=== PATIENT | female | born 1950 | race Caucasian/White ===

== ENCOUNTER 2019-02-18 00:45 | Inpatient (IN) | payer MEDICARE, MEDICAID ==
[2019-02-18 02:57] VITALS: BP 143/78
[2019-02-18] MEDS: Vitamin D3 2,000 IU SGL PO SCH (08:53)
[2019-02-18] MEDS: Fish Oil 1,000 MG SGL PO SCH ×2 (08:53→17:40)
[2019-02-18] MEDS: Multivitamin w/ Minerals Tab PO SCH (08:54)
[2019-02-18] MEDS: Pantoprazole 40 mg EC Tab PO SCH (08:56)
[2019-02-18] MEDS ORDERED: FISH OIL PO SCH (09:00)
[2019-02-18] MEDS ORDERED: [UNRECOGNIZED DRUG - OTHER] PO SCH (09:00)
[2019-02-18] MEDS ORDERED: CARBOXYMETHYLCELLULOSE SODIUM EACH EYE SCH (09:00)
[2019-02-18] MEDS ORDERED: Non-Formulary Item 1 EA (Cholecalciferol (Vitamin D3) [Vitamin D3] 1 CAP) PO SCH (09:00)
[2019-02-18] MEDS ORDERED: FLUTICASONE IH SCH (09:00)
[2019-02-18] MEDS ORDERED: BIOTIN 300 MCG PO SCH (09:00)
[2019-02-18] MEDS ORDERED: LAMOTRIGINE 75 MG PO SCH (09:00)
[2019-02-18] MEDS ORDERED: Hydrocodone/APAP 10 mg/325 mg Tab PO SCH (09:00)
[2019-02-18] MEDS ORDERED: OMEGA PO SCH (09:00)
[2019-02-18] MEDS ORDERED: SALMETEROL IH SCH (09:00)
[2019-02-18] MEDS ORDERED: FATTY ACIDS PO SCH (09:00)
[2019-02-18] MEDS ORDERED: Albuterol Nebulizer 2.5mg/3mL HHN SCH (13:00)
[2019-02-18] MEDS: Polyvinyl Alcohol Ophth Soln 15 mL Bottle EACH EYE PRN (13:03)
[2019-02-18] MEDS: Hydrocodone/APAP 10 mg/325 mg Tab PO PRN (13:03)
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
--- NOTE | 2019-02-18 15:09 | History & Physical ---
ADMIT DATE: 02/18/2019 PATIENT IDENTIFICATION: A 68-year-old female. CHIEF COMPLAINT: "I want to have more Klonopin." HISTORY SOURCE: Reviewing the chart, talking to the staff at [facility] as well as [facility] staff as well as the patient is known to me from [facility] since being I am the primary care doctor. HISTORY OF PRESENT ILLNESS: A 68-year-old female sees us at [facility], has history of diabetes, restless leg syndrome, osteoarthritis, osteoporosis, psychotic disorder, started to have symptoms of increasing anxiety, asking for more Klonopin and getting paranoid and agitated. The patient was sent to the hospital at [facility] where the patient was seen by Emergency Room MD. The patient was medically cleared and now being transferred to [facility] for further care. PAST MEDICAL HISTORY: Remarkable for: 1. Diabetes. 2. Dysphagia. 3. Degenerative joint disease. 4. Psychotic disorder. 5. History of chronic obstructive pulmonary disease. 6. Restless leg syndrome. 7. Gastroesophageal reflux disease. 8. Hyperlipidemia. 9. Chronic pain syndrome. MEDICATIONS: At the time of transfer, the patient is taking Klonopin, Lamictal, multivitamin, vitamin D3, Requip, omeprazole, Biotin, baclofen, Ingrezza, magnesium oxide, Advair, propranolol, Neurontin, Gurley, Colace. ALLERGIES: The patient is not allergic to any medications. SOCIAL HISTORY: The patient is a resident of [facility]. No history of smoking cigarette, alcohol, or drug use. FAMILY MEDICAL HISTORY: Remarkable for hypertension. REVIEW OF SYSTEMS: The patient is complaining of being more anxious, asking for more Klonopin and more Gurley. The patient denies any chest pain, shortness of breath, palpitation, dizziness, nausea, vomiting, diarrhea, dysuria, hematuria, hematochezia or melena. No history of any seizure or syncopal episode. No weight loss, no significant weight gain. No history of vaginal bleeding. No history of any hematuria, hematochezia or melena. PHYSICAL EXAMINATION: GENERAL: The patient is alert, awake, oriented, lying in the bed without any acute distress. VITAL SIGNS: Temperature 98.6, pulse is 74, respiratory rate 18, blood pressure is 143/67. HEENT: Normocephalic, atraumatic. Extraocular muscles are intact. Tongue is pink and coated. Poor dentition noted. No oral lesions, no exudate. No sinus tenderness. External auditory canal/membranes are well visualized. NECK: Supple, no JVD, no hepatojugular reflex. No lymphadenopathy, thyromegaly or carotid bruit. HEART: Both heart sounds are regular. No S3, no S4, no murmur. CHEST AND LUNGS: Equal in expansion, no expiratory wheezing. ABDOMEN: Soft. No guarding, no rigidity. Bowel sounds present. No palpable mass. EXTREMITIES: No edema, no cyanosis. Peripheral pulses are +1. No calf tenderness noted. NEUROLOGIC: Alert, awake, follows command. 2-12 cranial nerves are intact. Power in upper and lower extremities are 5-. Sensation to touch intact. Babinski's in both toes are going down. No cerebral sign. AVAILABLE DIAGNOSTIC DATA: CBC, chemistry panel and urine drug screen have been ordered at [facility], but I do not have any access to review the records. CLINICAL IMPRESSION: 1. Psychiatric disorder exacerbation. 2. Asthma, chronic obstructive pulmonary disease. 3. Diabetes mellitus. 4. Degenerative joint disease. 5. Osteoporosis. 6. Restless leg syndrome. 7. Chronic pain syndrome. 8. Gastroesophageal reflux disease. 9. Debility. 10. Chronic pain syndrome. 11. Fall risk. PLAN: 1. Psychiatric evaluation and management deferred to psychiatrist. 2. Resume the patient's medication as the patient was receiving at a [facility]. 3. Fall precautions. 4. Nutritional support. 5. General nursing care. 6. Appropriate home medication reconciliation. 7. Chronic disease management. 8. Symptoms management. 9. Care plan reviewed and discussed with staff. JOB# [id number]
[2019-02-18] MEDS ORDERED: Budesonide 0.5 Mg/2 mL Ud HHN SCH (19:00)
[2019-02-18] MEDS ORDERED: Budesonide 0.5 Mg/2 mL Ud HHN PRN (19:42)
[2019-02-18] MEDS ORDERED: Albuterol Nebulizer 2.5mg/3mL HHN PRN (19:45)
[2019-02-19] MEDS: Hydrocodone/APAP 10 mg/325 mg Tab PO PRN ×3 (07:11→23:11)
[2019-02-19] MEDS: Polyvinyl Alcohol Ophth Soln 15 mL Bottle EACH EYE PRN ×3 (08:35→21:10)
[2019-02-19] MEDS: Pantoprazole 40 mg EC Tab PO SCH (08:36)
[2019-02-19] MEDS: Multivitamin w/ Minerals Tab PO SCH (08:37)
[2019-02-19] MEDS: Vitamin D3 2,000 IU SGL PO SCH (09:00)
[2019-02-19] MEDS: Fish Oil 1,000 MG SGL PO SCH ×2 (09:00→16:23)
--- NOTE | 2019-02-19 16:15 | Progress Notes ---
DATE: 02/19/2019 Case was discussed with staff of the patient, reviewed records. The patient continues to complain of feeling very restless. Continues to be depressed, overwhelmed with a history of bipolar disorder. She denies with a history of encephalopathy. She is in denial about any prior treatment; however, she is on many psychotropic medication that does not make sense with a history of being diagnosed with schizophrenia and bipolar disorder. Sleeping better, eating better. No side effects with the medication, no sedation, or no nausea. She was started back on her medications. She is on Requip for her restless legs syndrome. She complains of still restless, we will give more medication time to work. We will continue outpatient group therapy, milieu therapy, and adjust medication as needed. JOB# [id number]
[2019-02-20] MEDS: Vitamin D3 2,000 IU SGL PO SCH (08:56)
[2019-02-20] MEDS: Fish Oil 1,000 MG SGL PO SCH ×2 (08:57→17:37)
[2019-02-20] MEDS: Multivitamin w/ Minerals Tab PO SCH (08:58)
[2019-02-20] MEDS: Pantoprazole 40 mg EC Tab PO SCH (08:58)
[2019-02-20] MEDS: Polyvinyl Alcohol Ophth Soln 15 mL Bottle EACH EYE PRN ×2 (09:00→20:46)
--- NOTE | 2019-02-20 10:24 | Progress Notes ---
DATE: 02/20/2019 PATIENT'S IDENTIFICATION: A 68-year-old female. SUBJECTIVE: The patient seen and examined. The patient is lying in the bed. The patient currently denies any chest pain, shortness of breath, palpitation, dizziness, nausea or vomiting. PHYSICAL EXAMINATION: VITAL SIGNS: See nurse's note. HEENT: Poor dentition. NECK: Supple, no JVD. HEART: Regular. CHEST: Lung equal in expansion, no expiratory wheezing. ABDOMEN: Soft. Bowel sounds present. No palpable mass. EXTREMITIES: No edema. CLINICAL IMPRESSION: 1. Psychotic disorder exacerbation. 2. Asthma, chronic obstructive pulmonary disease. 3. Diabetes. 4. Osteoporosis. 5. Restless leg syndrome. 6. Degenerative joint disease. 7. Gastroesophageal reflux disease. PLAN: 1. Psych medication. 2. Psych followup. 3. Asthma management. 4. Monitor blood sugar. 5. Requip. 6. Pain management. 7. Proton pump inhibitor. 8. General nursing care. 9. We will continue to follow this patient during the stay in the hospital. JOB# [id number]
--- NOTE | 2019-02-20 21:23 | Progress Notes ---
DATE: SUBJECTIVE: Chart reviewed and the patient interviewed. Also discussed the patient's condition with the staff and reviewed records and labs. The patient is in angry and irritable mood and the patient has mood swings. Also, during my interview, the patient is loud and keeps repeating questions and she is also suspicious. The patient also is still intrusive to others and hyperverbal and speech is pressured. The patient also is suspicious and is easily agitated and seems to be paranoid. Otherwise, the patient is compliant with taking her medications with no side effects of medications. ASSESSMENT: The patient is still having mood swings and showing manic behavior. TREATMENT PLAN: Continue to monitor behavior and condition closely. Also, we will increase Lamictal to 100 mg twice a day and continue gabapentin 300 mg 4 times a day. Also, continue to work on behavioral modification and her irritable mood. JOB# [id number]
[2019-02-20] MEDS: Hydrocodone/APAP 10 mg/325 mg Tab PO PRN (22:23)
[2019-02-21] MEDS: Multivitamin w/ Minerals Tab PO SCH (08:48)
[2019-02-21] MEDS: Fish Oil 1,000 MG SGL PO SCH ×2 (08:49→16:46)
[2019-02-21] MEDS: Vitamin D3 2,000 IU SGL PO SCH (08:49)
[2019-02-21] MEDS: Pantoprazole 40 mg EC Tab PO SCH (08:50)
--- NOTE | 2019-02-21 09:26 | Progress Notes ---
DATE: PATIENT'S IDENTIFICATION: A 68-year-old female. SUBJECTIVE: The patient was seen and examined. The patient was sitting in the chair. Denies any chest pain, shortness of breath, palpitation, dizziness, nausea or vomiting. OBJECTIVE: VITAL SIGNS: Temperature 97.8, pulse 61, respiratory rate 18, blood pressure 130/63. HEENT: No facial asymmetry. Poor dentition noted. NECK: Supple, no JVD. HEART: Regular. CHEST: Lungs are equal in expansion, no expiratory wheezing. ABDOMEN: Soft. Bowel sounds present. No palpable masses. EXTREMITIES: No edema. CLINICAL IMPRESSION: 1. Psychotic disorder exacerbation. 2. Restless legs syndrome. 3. Degenerative joint disease. 4. Dysphagia. 5. Chronic obstructive pulmonary disease. 6. Gastroesophageal reflux disease. 7. Hyperlipidemia. 8. Chronic pain syndrome. 9. Diabetes mellitus. PLAN: 1. Psych medication. 2. Psych followup. 3. P.r.n. inhalation therapy. 4. Maintenance steroid therapy for COPD. 5. General nursing care. 6. Requip. 7. Pain management. 8. Follow lab. 9. Fall precautions. 10. Nutritional support. 11. Care plan reviewed and discussed with staff. JOB# [id number]
[2019-02-21] MEDS: Hydrocodone/APAP 10 mg/325 mg Tab PO PRN ×2 (10:08→23:42)
--- NOTE | 2019-02-21 19:19 | Progress Notes ---
DATE: 02/21/2019 SUBJECTIVE: Chart was reviewed and the patient interviewed. Also discussed the patient's condition with the staff and reviewed records and labs. The patient is still anxious and the patient is still in an irritable and angry mood. The patient also is forgetful and she is still easily agitated and is hyperverbal and loud. She also still has mood swings and intrusive to others. The patient also is focused on pain medications and the patient is asking for more of pain medications. Otherwise, the patient is compliant with taking her medications with no side effects of medications. ASSESSMENT: The patient is still exhibiting manic behavior and is hyperverbal and agitated. TREATMENT PLAN: We will continue monitoring her behavior and her condition closely. Also, continue to work on her irritability and anger. Also, continue adjusting psychotropic medications and follow up closely. JOB# [id number]
[2019-02-22] MEDS: Hydrocodone/APAP 10 mg/325 mg Tab PO PRN ×3 (06:56→21:07)
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
[2019-02-22] MEDS: Vitamin D3 2,000 IU SGL PO SCH (08:52)
[2019-02-22] MEDS: Fish Oil 1,000 MG SGL PO SCH ×2 (08:52→17:05)
[2019-02-22] MEDS: Multivitamin w/ Minerals Tab PO SCH (08:52)
[2019-02-22] MEDS: Pantoprazole 40 mg EC Tab PO SCH (08:53)
--- NOTE | 2019-02-22 19:10 | Progress Notes ---
DATE: 02/22/2019 SUBJECTIVE: The patient seen and examined. The patient is sitting in a chair. The patient currently denies any chest pain, shortness of breath, palpitation, dizziness, nausea, vomiting, diarrhea. PHYSICAL EXAMINATION: VITAL SIGNS: Temperature 97.2, pulse 55, respiratory rate 18, blood pressure 110/70. Medication admission record has been reviewed. HEENT: No facial asymmetry. NECK: Supple, no JVD. HEART: Regular. CHEST: Lung equal in expansion, no expiratory wheezing. ABDOMEN: Soft. Bowel sounds present. No palpable mass. EXTREMITIES: No edema. CLINICAL IMPRESSION: 1. Allergic rhinitis. 2. Vitamin D deficiency. 3. Urinary incontinence. 4. Restless leg syndrome. 5. Psychotic disorder. 6. Degenerative joint disease. 7. Peripheral neuropathy. 8. Chronic constipation. 9. Asthma, chronic obstructive pulmonary disease. 10. Chronic pain. PLAN: 1. Continue pain management. 2. Inhalation therapy. 3. Pain. Baclofen. 4. Continue other medicine as prescribed. 5. Fall precaution. 6. General nursing care. 7. Chronic disease management. 8. Symptoms management. 9. Medication management. 10. Care plan reviewed and discussed with staff. JOB# [id number]
[2019-02-23] MEDS: Vitamin D3 2,000 IU SGL PO SCH (08:22)
[2019-02-23] MEDS: Fish Oil 1,000 MG SGL PO SCH ×3 (08:22→18:48)
[2019-02-23] MEDS: Multivitamin w/ Minerals Tab PO SCH (08:23)
[2019-02-23] MEDS: Pantoprazole 40 mg EC Tab PO SCH (08:24)
--- NOTE | 2019-02-23 15:20 | Progress Notes ---
DATE: SUBJECTIVE: Chart was reviewed and the patient interviewed. Also discussed the patient's condition with the staff and reviewed records and labs. The patient is still easily agitated and she is still in irritable and angry mood. The patient also is hyperverbal and she is pacing around the unit in an irritable mood and intrusive to others. The patient also is still in suspicious and is still paranoid. The patient also had difficulty sleeping at night. The patient continued to also ask for more pain medications and she is occupied with pain medications. Also, has difficulty following the directions. Otherwise, the patient is compliant with taking her medications with no side effects of medications. ASSESSMENT: The patient is still agitated and in irritable mood. TREATMENT PLAN: We will increase Seroquel to 50 mg 3 times a day. Also, we will increase gabapentin to 400 mg 4 times a day. Also, continue to work on her irritability and her mood and continue to follow up. JOB# [id number]
--- NOTE | 2019-02-23 15:56 | Progress Notes ---
DATE: 02/23/2019 SUBJECTIVE: The patient seen and examined. The patient is sitting in a chair. Denies any new complaint. Medication administration record has been reviewed. OBJECTIVE: VITAL SIGNS: Temperature 97.8, pulse 68, respiratory rate 18, blood pressure 131/64. HEENT: Poor dentition. NECK: Supple, no JVD. HEART: Regular. CHEST AND LUNGS: Equal in expansion, no expiratory wheezing. ABDOMEN: Soft. Bowel sounds are present. No palpable mass. EXTREMITIES: No edema. Peripheral pulses +1. No calf tenderness. CLINICAL IMPRESSION: 1. Psychiatric disorder exacerbation. 2. Asthma and chronic obstructive pulmonary disease. 3. Degenerative joint disease. 4. Osteoporosis. 5. Restless leg syndrome. 6. Chronic pain syndrome. 7. Gastroesophageal reflux disease. 8. Debility. 9. Fall risk. PLAN: 1. Psych medication. 2. P.r.n. inhalation therapy. 3. Maintenance steroid inhaler. 4. Fall precautions. 5. Requip. 6. Protonix. 7. Antireflux measures. 8. General nursing care. 9. Nutritional support. 10. Fall precaution. 11. Care plan reviewed and discussed with staff. JOB# [id number]
[2019-02-24] MEDS: Polyvinyl Alcohol Ophth Soln 15 mL Bottle EACH EYE PRN (08:34)
[2019-02-24] MEDS: Pantoprazole 40 mg EC Tab PO SCH (08:35)
[2019-02-24] MEDS: Vitamin D3 2,000 IU SGL PO SCH (08:40)
[2019-02-24] MEDS: Fish Oil 1,000 MG SGL PO SCH ×2 (08:40→16:35)
[2019-02-24] MEDS: Multivitamin w/ Minerals Tab PO SCH (08:41)
--- NOTE | 2019-02-24 20:06 | Progress Notes ---
DATE: 02/24/2019 SUBJECTIVE: The patient seen and examined. The patient is lying in the bed. The patient complained of being constipated. The patient is currently on stool softener. PHYSICAL EXAMINATION: VITAL SIGNS: Temperature 97.4, pulse 65, respiratory rate 20, blood pressure 152/72. HEENT: Poor dentition. NECK: Supple, no JVD. HEART: Regular. CHEST: Lung equal in expansion, no expiratory wheezing. ABDOMEN: Soft. Bowel sounds present. No palpable mass. EXTREMITIES: No edema. NEUROLOGIC: Decreased power throughout the upper and lower extremity. CLINICAL IMPRESSION: 1. Restless leg syndrome. 2. Functional constipation. 3. Gastroesophageal reflux disease. 4. Diabetes. 5. High risk for fall. 6. Psychotic disorder. 7. Vitamin D deficiency. 8. Asthma. 9. Chronic pain syndrome. PLAN: 1. Constipation, stool softener along with anti-constipation medication. 2. Pulmicort for asthma. 3. P.r.n. inhalation therapy. 4. Requip. 5. Symptoms management. 6. Singulair. 7. Protonix. 8. General nursing care. 9. Psych medication. 10. Psych followup. 11. Care plan reviewed and discussed with staff. JOB# [id number]
[2019-02-24] MEDS: Lactulose 10 Gm/15 mL 30mL UDC PO PRN (21:32)
--- NOTE | 2019-02-25 01:53 | Progress Notes ---
DATE: 02/24/2019 Case was discussed with staff of the patient, reviewed records. This is a well-known case to me and seen her before many times and covering for Dr. Malik. The patient continues to be angry, irritable, easily agitated, hyperverbal, pacing around the unit. Continues to have poor insight. Continues to have difficulty with sleep. She has been seeking pain medication. Unable to follow directions. She has been compliant with the medication with no side effects, no sedation, no nausea, no extrapyramidal symptoms. We will continue to work with the patient in group therapy, milieu therapy, adjust medication as needed. JOB# [id number]
[2019-02-25] MEDS: Hydrocodone/APAP 10 mg/325 mg Tab PO PRN (02:58)
[2019-02-25] MEDS: Vitamin D3 2,000 IU SGL PO SCH (08:42)
[2019-02-25] MEDS: Pantoprazole 40 mg EC Tab PO SCH (08:42)
[2019-02-25] MEDS: Fish Oil 1,000 MG SGL PO SCH ×2 (08:42→16:29)
[2019-02-25] MEDS: Multivitamin w/ Minerals Tab PO SCH (08:43)
--- NOTE | 2019-02-26 00:27 | Progress Notes ---
DATE: 02/25/2019 SUBJECTIVE: The patient was seen and evaluated. The patient's chart reviewed. Covering for Dr. Malik. IDENTIFYING DATA: A 68-year-old female brought in here after the patient ____ from [facility] with a history of schizoaffective bipolar type, presented disorganized. Physician evaluation observed her to be irritable, easily agitated, hyperverbal and pacing around the unit. Today on [id number] evaluation, the patient reports that her medications are tolerated. She denies any complications, oversedation with the medication. She does report her anxiety with depressive symptoms continue to improve, although finds herself stressed and ____. MENTAL STATUS EXAMINATION: Mild anxiety, depressed. ASSESSMENT AND PLAN: The patient is with history of schizoaffective, bipolar type, stabilizing with the current medication regimen, which includes, as per medication reconciliation reviewed, includes Klonopin as needed, gabapentin, Lamictal, Seroquel. [facility]# [id number]
[2019-02-26] MEDS: Hydrocodone/APAP 10 mg/325 mg Tab PO PRN (06:31)
[2019-02-26] MEDS: Polyvinyl Alcohol Ophth Soln 15 mL Bottle EACH EYE PRN ×2 (06:32→20:59)
[2019-02-26] MEDS: Fish Oil 1,000 MG SGL PO SCH ×2 (08:31→16:36)
[2019-02-26] MEDS: Vitamin D3 2,000 IU SGL PO SCH (08:31)
[2019-02-26] MEDS: Pantoprazole 40 mg EC Tab PO SCH (08:31)
[2019-02-26] MEDS: Multivitamin w/ Minerals Tab PO SCH (08:32)
--- NOTE | 2019-02-26 16:29 | Progress Notes ---
DATE: 02/26/2019 Nursing staff observed to be more redirectable. Today on [id number] evaluation, the patient denies any complications of medication. The patient reported her anxiety and depressive symptoms are less intense. MENTAL STATUS EXAMINATION: Less depressed and less anxious. ASSESSMENT AND PLAN: Schizoaffective disorder stabilized with the current medication regimen. We will continue monitoring and evaluating as she continues to develop coping skills with both individual, group therapy. Primary medical doctor to continue working with mental briefcase sewer for safe disposition once psychiatrically stable. JOB# [id number]
[2019-02-26] MEDS: Lactulose 10 Gm/15 mL 30mL UDC PO PRN (20:45)
[2019-02-27] MEDS: Pantoprazole 40 mg EC Tab PO SCH (08:51)
[2019-02-27] MEDS: Fish Oil 1,000 MG SGL PO SCH ×2 (08:52→16:49)
[2019-02-27] MEDS: Multivitamin w/ Minerals Tab PO SCH (08:53)
[2019-02-27] MEDS: Vitamin D3 2,000 IU SGL PO SCH (08:54)
[2019-02-27] MEDS: Hydrocodone/APAP 10 mg/325 mg Tab PO PRN ×3 (09:07→21:27)
--- NOTE | 2019-02-27 20:04 | Progress Notes ---
DATE: 02/27/2019 SUBJECTIVE: The patient seen and examined. The patient was lying in the bed. According to nurse, the patient had some diarrhea. The patient currently denies any chest pain, shortness of breath, palpitation, dizziness, nausea, vomiting, hematemesis, hematochezia, or melena. PHYSICAL EXAMINATION: VITAL SIGNS: Temperature 97.4, pulse 60, respiratory rate 18, blood pressure 133/60. HEENT: Poor dentition. NECK: Supple, no JVD. HEART: Regular. LUNGS: Clear. ABDOMEN: Soft. Bowel sounds present. No palpable mass. EXTREMITIES: No edema. Peripheral pulses +1. NEUROLOGIC: Lower extremity weakness noted. CLINICAL IMPRESSION: 1. Diarrhea, etiology needs to be determined. 2. Asthma. 3. Chronic pain. 4. Vitamin D deficiency. 5. Hypertension. 6. Diabetes. 7. Degenerative joint disease. 8. Gastroesophageal reflux disease. 9. Essential tremor. 10. Restless leg syndrome. PLAN: 1. P.r.n. Imodium. 2. Stool studies. 3. Continue other medicine as prescribed. 4. Psych followup. 5. Psych medication. 6. Fall precaution. 7. General nursing care. 8. Continue other medicine as prescribed. 9. Care plan reviewed and discussed with staff. JOB# [id number]
--- NOTE | 2019-02-28 00:01 | Progress Notes ---
DATE: 02/27/2019 Case was discussed with staff of the patient, reviewed records. The patient continues to be depressed, irritable. Continues to have poor insight. Continues to be unpredictable, impulsive. She reports her symptoms were starting to improve. No side effects with the medication, no sedation, no nausea, no extrapyramidal symptoms. Her vital signs are stable. We will continue outpatient group therapy, milieu therapy, and adjust medications as needed. [facility]# [id number]
[2019-02-28] MEDS: Hydrocodone/APAP 10 mg/325 mg Tab PO PRN ×2 (06:38→13:21)
[2019-02-28] MEDS: Pantoprazole 40 mg EC Tab PO SCH (08:29)
[2019-02-28] MEDS: Multivitamin w/ Minerals Tab PO SCH (08:29)
[2019-02-28] MEDS: Vitamin D3 2,000 IU SGL PO SCH (08:29)
[2019-02-28] MEDS: Fish Oil 1,000 MG SGL PO SCH ×2 (08:29→16:29)
--- NOTE | 2019-02-28 21:28 | Progress Notes ---
DATE: Case was discussed with staff of the patient, reviewed records. The patient is preoccupied with discharge. Continues to have poor insight. Continues to have episodes of irritability. She is impulsive, unpredictable, depressed; however, she also reports her symptoms started to improve. She is sleeping well, eating well, able to express herself well. No side effects with the medication, no sedation, no nausea and no extrapyramidal symptoms. Discussed side effects of medication including Lamictal and the possibility of ____ rashes, continue on medication and go to a doctor and if possible, we will continue outpatient group therapy, milieu therapy, and adjust the medication as needed. JOB# [id number]
--- NOTE | 2019-03-01 07:04 | Progress Notes ---
DATE: PSYCHIATRIC PROGRESS NOTE SUBJECTIVE: Chart was reviewed and the patient interviewed. Also discussed the patient's condition with the staff and reviewed records and labs. The patient is still extremely irritable and is still extremely agitated. The patient also is still demanding and still having severe mood swings. The patient also is intrusive. She also is asking to go back to [place] while at the same time, they are not accepting her because of her behavior unless if she has a change in her behavior. She is still bothering other patients and is interfering with their business and argumentative with them and towards the staff. Otherwise, the patient is compliant with taking her medications with no side effects of medications. ASSESSMENT: The patient is still intrusive and is still agitated and can be dangerous to others with her agitation and aggressive behavior. TREATMENT PLAN: Continue to monitor her behavior and condition closely. Also, continue Neurontin and Lamictal, but will increase Seroquel to 100 mg 3 times a day and continue to work on behavior modification as well as discharge plans. JOB# [id number]
[2019-03-01] MEDS: Vitamin D3 2,000 IU SGL PO SCH (08:12)
[2019-03-01] MEDS: Multivitamin w/ Minerals Tab PO SCH (08:14)
[2019-03-01] MEDS: Pantoprazole 40 mg EC Tab PO SCH (08:14)
[2019-03-01] MEDS: Fish Oil 1,000 MG SGL PO SCH ×2 (08:15→17:09)
[2019-03-01] MEDS: Polyvinyl Alcohol Ophth Soln 15 mL Bottle EACH EYE PRN (09:50)
[2019-03-01] MEDS: Hydrocodone/APAP 10 mg/325 mg Tab PO PRN (10:02)
--- NOTE | 2019-03-01 23:00 | Progress Notes ---
DATE: 03/01/2019 SUBJECTIVE: The patient seen and examined. The patient is lying in the bed. The patient denies any chest pain, shortness of breath, palpitation, dizziness, nausea, vomiting, diarrhea. PHYSICAL EXAMINATION: VITAL SIGNS: See nurse's note. HEENT: Poor dentition. NECK: Supple, no JVD. HEART: Regular. CHEST AND LUNGS: Equal in expansion, no expiratory wheezing. ABDOMEN: Soft, no guarding, no rigidity. Bowel sounds present. No palpable mass. EXTREMITIES: No edema, no cyanosis. Peripheral pulses are +2. No calf tenderness noted. MEDICATIONS: Available MAR reviewed. CLINICAL IMPRESSION: 1. Gastroesophageal reflux disease. 2. Constipation. 3. Diabetes. 4. Vitamin D deficiency. 5. Asthma. 6. Chronic pain syndrome. 7. Degenerative joint disease. 8. Fall risk. PLAN: 1. Requip. 2. Protonix. 3. Antireflux measures. 4. Monitor blood sugar. 5. Vitamin D supplement. 6. Psych medication. 7. Pain management. 8. P.r.n. inhalation therapy. 9. General nursing care. 10. Care plan reviewed and discussed with staff. JOB# [id number]
[2019-03-02] MEDS: Hydrocodone/APAP 10 mg/325 mg Tab PO PRN ×2 (03:39→11:43)
[2019-03-02] MEDS: Multivitamin w/ Minerals Tab PO SCH (09:01)
[2019-03-02] MEDS: Pantoprazole 40 mg EC Tab PO SCH (09:01)
[2019-03-02] MEDS: Vitamin D3 2,000 IU SGL PO SCH (09:02)
[2019-03-02] MEDS: Fish Oil 1,000 MG SGL PO SCH ×2 (09:02→16:59)
[2019-03-02] MEDS: Polyvinyl Alcohol Ophth Soln 15 mL Bottle EACH EYE PRN (10:09)
[2019-03-02] MEDS ORDERED: Hydrocodone/APAP 10 mg/325 mg Tab PO PRN (12:43)
== END 2019-03-02 21:45 | DRG 885 ==
LOC: GERO 00:45
PROVIDERS: ADMIT Psychiatry & Neurology Psychiatry; ATTEND Psychiatry & Neurology Psychiatry
DX: F31.30 Bipolar disorder, current episode depressed, mild or moderate severity, unspecified (principal); F23 Brief psychotic disorder; J44.9 Chronic obstructive pulmonary disease, unspecified; M19.90 Unspecified osteoarthritis, unspecified site; K21.9 Gastro-esophageal reflux disease without esophagitis; F41.1 Generalized anxiety disorder; G25.81 Restless legs syndrome; R13.10 Dysphagia, unspecified; E78.5 Hyperlipidemia, unspecified; G89.4 Chronic pain syndrome; M81.0 Age-related osteoporosis without current pathological fracture; J30.9 Allergic rhinitis, unspecified; E55.9 Vitamin D deficiency, unspecified; R32 Unspecified urinary incontinence; E11.42 Type 2 diabetes mellitus with diabetic polyneuropathy; K59.09 Other constipation; K59.04 Chronic idiopathic constipation; R19.7 Diarrhea, unspecified; Z91.81 History of falling
CPT/HCPCS: 83036-90; 90899; 97530; G0410; X3904; Z7610